=== PATIENT | female | born 1940 | race Asian ===

== ENCOUNTER 2017-09-02 11:50 | Emergency (ER) | payer OTHER ==
[2017-09-02] MEDS: ONDANSETRON 4 MG INJ IV (12:42)
[2017-09-02 12:48] LABS: ADD MAN DIFF? NO
[2017-09-02 12:50] LABS: BASOPHIL # 0.1 10^3/ul (0.0-0.1); BASOPHILS % 0.9 % (0.0-2.0); EOSINOPHILS % 0.6 % (0.0-7.0); HEMOGLOBIN 12.4 g/dl (12.0-16.0); LYMPHOCYTES # 1.1 10^3/ul (0.8-2.9); LYMPHOCYTES % 16.9 % (15.0-51.0); MEAN CORPUSCULAR HEMOGLOBIN 32.1 pg (29.0-33.0); MEAN CORPUSCULAR HGB CONC 31.8 g/dl (32.0-37.0); MONOCYTE # 0.2 10^3/ul (0.3-0.9); MONOCYTES % 3.2 % (0.0-11.0); NEUTROPHIL # 5.1 10^3/ul (1.6-7.5); NEUTROPHILS % 77.9 % (39.0-77.0); PLATELET COUNT 202 10^3/UL (140-415); RED BLOOD COUNT 3.86 10^6/ul (4.20-5.40); RED CELL DISTRIBUTION WIDTH 13.8 % (11.5-14.5)
[2017-09-02 12:50] LABS: WHITE BLOOD COUNT 6.5 10^3/ul (4.8-10.8)
[2017-09-02] MEDS: MECLIZINE 12.5 MG TAB PO (13:01)
[2017-09-02 13:02] LABS: HEMOGLOBIN A1C 4.5 % (0-5.9)
[2017-09-02 13:08] LABS: ANION GAP 15 (8-16); BLOOD UREA NITROGEN 22 mg/dl (7-20); CALCIUM 9.4 mg/dl (8.4-10.2); CARBON DIOXIDE 28 mmol/L (21-31); CHLORIDE 104 mmol/L (97-110); CHOL/HDL RATIO 3.9 RATIO; CHOLESTEROL 226 mg/dl (100-200); CREATININE 3.46 mg/dl (0.44-1.00); GLUCOSE 137 mg/dl (70-220); HDL CHOLESTEROL 57 mg/dl (33-92); LDL CHOLESTEROL,CALCULATED 137 mg/dl; SODIUM 143 mmol/L (135-144); TRIGLYCERIDES 162 mg/dl (0-149)
[2017-09-02 13:21] LABS: INR 0.94; PROTIME 12.7 Sec (11.9-14.9)
[2017-09-02 13:22] LABS: PARTIAL THROMBOPLASTIN TIME 29.2 Sec (25.0-35.0); TROPONIN-I < 0.012 ng/ml (0.00-0.12)
== END 2017-09-02 15:24 | disposition home or self-care (01) ==
LOC: E/R 11:50
DX: R42 Dizziness and giddiness (principal); R40.2252 Coma scale, best verbal response, oriented, at arrival to emergency department; R51 Headache; I12.9 Hypertensive chronic kidney disease with stage 1 through stage 4 chronic kidney disease, or unspecified chronic kidney disease; N18.9 Chronic kidney disease, unspecified; R40.2142 Coma scale, eyes open, spontaneous, at arrival to emergency department; R40.2362 Coma scale, best motor response, obeys commands, at arrival to emergency department; Z85.828 Personal history of other malignant neoplasm of skin; Z87.891 Personal history of nicotine dependence
CPT/HCPCS: 36415; 70450; 71045; 80048; 80061; 83036; 84484; 85025; 85610; 85730; 93005; 96374; 99285-25

== ENCOUNTER 2018-12-31 02:56 | Emergency (ER) | payer OTHER ==
[2018-12-31] MEDS: LIDOCAINE/MYLANTA 40 ML BTL PO (05:25)
[2018-12-31] MEDS: OXYCODONE/ACETAMINOPHEN (5/325) TAB PO (05:25)
[2018-12-31] MEDS: FAMOTIDINE 20 MG TAB PO (05:25)
[2018-12-31 05:27] LABS: ADD MAN DIFF? NO
[2018-12-31 05:32] LABS: BASOPHIL # 0.1 10^3/ul (0.0-0.1); BASOPHILS % 0.8 % (0.0-2.0); EOSINOPHILS # 0.4 10^3/ul (0.0-0.5); EOSINOPHILS % 5.6 % (0.0-7.0); HEMATOCRIT 33.6 % (37.0-47.0); HEMOGLOBIN 10.5 g/dl (12.0-16.0); LYMPHOCYTES % 30.9 % (15.0-51.0); MEAN CORPUSCULAR HEMOGLOBIN 30.3 pg (29.0-33.0); MEAN CORPUSCULAR HGB CONC 31.3 g/dl (32.0-37.0); MEAN CORPUSCULAR VOLUME 96.8 fl (82.0-101.0); MEAN PLATELET VOLUME 10.1 fl (7.4-10.4); MONOCYTE # 0.7 10^3/ul (0.3-0.9); MONOCYTES % 10.7 % (0.0-11.0); NEUTROPHIL # 3.3 10^3/ul (1.6-7.5); NEUTROPHILS % 51.4 % (39.0-77.0); PLATELET COUNT 245 10^3/UL (140-415); RED BLOOD COUNT 3.47 10^6/ul (4.20-5.40); RED CELL DISTRIBUTION WIDTH 12.7 % (11.5-14.5)
[2018-12-31 05:32] LABS: WHITE BLOOD COUNT 6.4 10^3/ul (4.8-10.8)
[2018-12-31] MEDS: ONDANSETRON 4 MG INJ IV (05:40)
[2018-12-31 05:51] LABS: ALANINE AMINOTRANSFERASE 17 IU/L (13-69); ALBUMIN 4.3 g/dl (3.3-4.9); ALBUMIN/GLOBULIN RATIO 1.16; ALKALINE PHOSPHATASE 95 IU/L (42-121); ANION GAP 8 (5-13); ASPARTATE AMINO TRANSFERASE 48 IU/L (15-46); BILIRUBIN,INDIRECT 0.4 mg/dl (0-1.1); BILIRUBIN,TOTAL 0.4 mg/dl (0.2-1.3); BLOOD UREA NITROGEN 35 mg/dl (7-20); CALCIUM 9.3 mg/dl (8.4-10.2); CARBON DIOXIDE 32 mmol/L (21-31); CHLORIDE 101 mmol/L (97-110); CREATINE KINASE 182 IU/L (23-200); CREATININE 3.67 mg/dl (0.44-1.00); GLUCOSE 96 mg/dl (70-220); LIPASE 415 U/L (23-300); POTASSIUM 4.4 mmol/L (3.5-5.1); SODIUM 141 mmol/L (135-144)
[2018-12-31 05:53] LABS: ADD UMIC YES; UR ASCORBIC ACID NEGATIVE (NEGATIVE); UR BILIRUBIN (Dip) NEGATIVE (NEGATIVE); UR BLOOD (Dip) 1+ mg/dL (NEGATIVE); UR CLARITY CLEAR (CLEAR); UR COLOR STRAW (YELLOW); UR GLUCOSE (Dip) 2+ mg/dL (NEGATIVE); UR KETONES (Dip) NEGATIVE (NEGATIVE); UR LEUKOCYTE ESTERASE (Dip) NEGATIVE Leu/ul (NEGATIVE); UR NITRITE (Dip) NEGATIVE (NEGATIVE); UR RBC 4 /HPF (0-5); UR SPECIFIC GRAVITY (Dip) 1.009 (1.003-1.030); UR TOTAL PROTEIN (Dip) 2+ mg/dl (NEGATIVE); UR UROBILINOGEN (Dip) NEGATIVE (NEGATIVE); UR WBC 1 /HPF (0-5)
[2018-12-31 06:02] LABS: TROPONIN-I < 0.012 ng/ml (0.000-0.120)
== END 2018-12-31 08:05 | disposition home or self-care (01) ==
LOC: E/R 02:56
DX: R10.13 Epigastric pain (principal); I12.0 Hypertensive chronic kidney disease with stage 5 chronic kidney disease or end stage renal disease; N18.6 End stage renal disease; Z87.891 Personal history of nicotine dependence; Z85.828 Personal history of other malignant neoplasm of skin; Z99.2 Dependence on renal dialysis
CPT/HCPCS: 36415; 74176; 80053; 81001; 82550; 83690; 84484; 85025; 87086; 96374; 99285-25